=== PATIENT | male | born 1990 | race Two or more races ===

== ENCOUNTER 2024-01-14 07:05 | Emergency (ER) | payer MEDICAID ==
[~2024-01-14] VITALS: Ht 170.2 cm; Wt 76.6 kg
[2024-01-14 08:17] VITALS: BP 144/84; PULSE 90; RESP 12; TEMP 99.2; O2SAT 98
[2024-01-14] MEDS: ACETAMINOPHEN/CODEINE#3 (300/30mg) TAB PO ONE (09:13)
[2024-01-14] MEDS ORDERED: IBUP-1455 PO (10:06)
== END 2024-01-14 10:21 | disposition home or self-care (01) ==
LOC: ER 07:05
DX: S02.2XXA Fracture of nasal bones, initial encounter for closed fracture (principal); Y08.89XA Assault by other specified means, initial encounter; Y93.89 Activity, other specified; Y92.89 Other specified places as the place of occurrence of the external cause; Y99.8 Other external cause status
CPT/HCPCS: 70450; 70486